=== PATIENT | female | born 1950 | race Caucasian/White ===

== ENCOUNTER 2016-03-25 10:55 | Inpatient (IN) | payer MEDICARE, MEDICAID ==
[2016-03-25 11:07] LABS: ABG Draw Site Right Radial; ALLEN'S TEST PASS; BEb 24.6 (+/- 2); TCO2 61.9 MMOL/L (23-27)
--- NOTE | 2016-03-25 11:09 | EDPRACDOC ---
- General Information Information Source: Patient, [employer] Vertical Mode Of Arrival: Ambulance - History of Present Illness Onset: Unknown HPI: Patient states she has had problems breathing for "a long time", her home RN noted today she seemed much weaker and having increased trouble breathing, states too weak to get out of bed to use her Neb or inhaler. Patient reports cough/congestion, unsure of sputum production, fever, chills. No nausea/vomiting /CP. Patient unable to speak in full sentences. Shortness of Breath: Severe Relevant History: Reports: COPD, Heart Failure (CHF) Cough: Reports: Productive Associated Signs and symptoms: Reports: Cough <Ana Palumbo - Last Filed: 03/25/16 11:19> <Mami Mcconnell - Last Filed: 03/25/16 12:04> - General Information Chief Complaint: Dyspnea/Resp distress Stated Complaint: RESP. PROBLEMS Time Seen by Provider: 03/25/16 10:58 Home Medications: Home Medications Alprazolam [Xanax] 0.5 mg PO TID PRN 03/26/12 Aspirin [Aspirin, Chewable] 81 mg PO DAILY@1200 03/26/12 Esomeprazole Mag Trihydrate [Nexium] 40 mg PO QAM 03/26/12 Rosuvastatin Calcium [Crestor] 5 mg PO 03/26/12 Calcium Carb/Vit D3/Minerals [Caltrate w/ Vit D Tab (600mg/800IU)] 1 tab PO BID 12/12/12 CloNIDine (Antihypertensive) [Catapres] 0.2 mg PO BID 12/12/12 Ascorbic Acid [Vitamin C] 500 mg PO DAILY@1200 08/29/13 Levothyroxine [Synthroid, Levoxyl] 88 mcg PO QAM 08/29/13 Acetaminophen/Dp-Hydram HCl [Tylenol Pm Ex-Strength Caplet 500mg/25mg] 2 tabs PO 11/27/13 Budesonide [Pulmicort] 0.5 mg NEB BID 11/27/13 Citalopram (anti-depressant) [Celexa] 20 mg PO DAILY@1200 11/27/13 Furosemide [Lasix] 20 mg PO BID 11/27/13 Potassium Chloride [Micro-K] 8 meq PO QAM 11/27/13 Albuterol Sulfate [Proair Hfa] 1 - 2 puff INH Q4-6H PRN 05/06/14 Estradiol [Estrace] 0.5 mg PO DAILY 05/06/14 Nebulizer [Erapid Nebulizer] 1 item NEB DAILY 05/06/14 [place]-3S/Dha/Epa/Fish Oil [Fish Oil 1,200 mg Softgel] 1 cap PO BID 05/06/14 Cholecalciferol [Vitamin D] 1,000 units PO DAILY 03/25/16 Furosemide [Lasix] 40 mg PO DAILY 03/25/16 Potassium Chloride [Klor-Con M10] 10 meq PO DAILY 03/25/16 Prednisone [Sterapred Ds] 10 mg PO DIR 03/25/16 Umeclidinium Brm/Vilanterol Tr [Anoro Ellipta 62.5-25 Mcg INH] 1 puff INH DAILY 03/25/16 Allergies/Adverse Reactions: Allergies Allergy/AdvReac Type Severity Reaction Status Date / Time No Known Allergies Allergy Verified 11/27/13 15:28 - Treatment Prior to ED Arrival Reported Medications/Treatment [employer] Meds/Treatments Given Neb Treatment(Albuterol) EMS Treatment ALS IV Yes <Mami Mcconnell - Last Filed: 03/25/16 12:04> ED Past Medical History - History Reviewed Yes Nurses notes reviewed and agree except as marked - Patient Medical History Cardiac History: Reports: Hypertension, Congestive Heart Failure, Heart Attack ( ? mild 13 yrs ago "due to my breathing") Respiratory History: Reports: Asthma, COPD, Emphysema GI/ History: Reports: Gastroesophageal Reflux Psychological History: Reports: Depression, Anxiety Systemic History: Reports: Cancer, Hypothyroidism - Family Medical History Reports: Hypertension (mother and father), Cancer (brother colon and liver), Stroke (2 sisters), Cardiac Disorders (mother and father) - Social Medical History ETOH: None Substance Abuse: None Lives In: Home <Ana Palumbo - Last Filed: 03/25/16 11:19> EDM Review of Systems - Review of Systems ROS Negative Except as Marked: Yes All systems reviewed and were negative except as marked Constitutional: Fever, Fatigue, Weakness Eyes: No Symptoms Reported Ears: No Symptoms Reported Throat: No Symptoms Reported Nose: No Symptoms Reported Mouth: No Symptoms Reported Respiratory: Cough, Shortness of Breath, Sputum, Dyspnea Cardiovascular: No Symptoms Reported Gastrointestinal: No Symptoms Reported <Ana Palumbo - Last Filed: 03/25/16 11:19> - Physical Exam Constitutional: Alert Oriented to: Time, Person, Place Last recorded Vital Signs: Oxygen Pulse Oxygen Saturation O2 Device Oxygen Flow Rate Fraction of Inspired Oxygen ( FIO2) - HEENT Head: Normal ( normocephalic) Eye Exam: Normal (PERRL, EOMI, Sclera white) Nose: No Symptoms Reported (septum midline) Neck: Normal (FROM, trachea at midline) - Respiratory/Cardiovascular Respiratory: Diminished Cardiovascular: Normal (RRR without murmur, gallop or rub) - GI Auscultation: Normal (NABS) Tenderness: Non tender - Musculoskeletal Back: Normal (Non-Tender) Extremities: Normal (Normal tone, Pulses 2+ No cyanosis or edema, FROM) - Integumentary Skin: Normal, Warm, Dry Lymphatics: Normal (no adenopathy) - Neurologic Memory Impaired: Normal Motor Function: Normal (Normal tone, Pulses 2+ No cyanosis or edema, FROM) Mood Description: Normal <Sai Palumboy Tasha - Last Filed: 03/25/16 11:19> - Physical Exam Last recorded Vital Signs: Last Vital Signs Temp 99.2 F 03/25/16 10:58 Pulse 115 03/25/16 12:00 Resp 26 H 03/25/16 12:00 BP 127/60 03/25/16 12:00 Pulse Ox 91 03/25/16 12:00 Oxygen Pulse Oxygen Saturation 91 O2 Device BiPAP Oxygen Flow Rate 15 Fraction of Inspired Oxygen ( 40 FIO2) <Mami Mcconnell - Last Filed: 03/25/16 12:04> ED SOB MDM - EKG EKG #1 EKG Time: 11:02 -: Yes EKG interpreted by me Rate: bpm: 108 [place]: Normal Rhythm: ST Block: None ST: Nonsp <Sai Palumboy Tasha - Last Filed: 03/25/16 11:19> - Results Result Diagrams: 03/25/16 11:12 03/25/16 11:12 Results: WBC 29.6 xk/uL (3.8-10.8) H 03/25/16 11:12 RBC 4.02 xM/uL (4.20-5.40) L 03/25/16 11:12 Hgb 11.3 g/dL (12.0-16.0) L 03/25/16 11:12 Hct 37.0 % (36-47) 03/25/16 11:12 MCV 92 fL (81-99) 03/25/16 11:12 MCH 28.1 pg (27-32) 03/25/16 11:12 MCHC 30.6 g/dl (33-36) L 03/25/16 11:12 RDW 14.3 % (11.5-14.5) 03/25/16 11:12 Plt Count 194 xk/uL (130-400) 03/25/16 11:12 MPV 9.5 fL (7.4-10.4) 03/25/16 11:12 Neut % (Auto) Cancelled 03/25/16 11:12 Lymph % (Auto) Cancelled 03/25/16 11:12 [place] % (Auto) Cancelled 03/25/16 11:12 Eos % (Auto) Cancelled 03/25/16 11:12 Baso % (Auto) Cancelled 03/25/16 11:12 Absolute Neuts (auto) Cancelled 03/25/16 11:12 Absolute Lymphs (auto) Cancelled 03/25/16 11:12 Seg Neuts % (Manual) 92 % (45-76) H 03/25/16 11:12 Band Neutrophils % 3 % (0-5) 03/25/16 11:12 Lymphocytes % (Manual) 4 % (17-44) L 03/25/16 11:12 Monocytes % (Manual) 1 % (0-10) 03/25/16 11:12 Absolute Neutrophils 28.12 xk/uL (1.7-8.2) H 03/25/16 11:12 Absolute Lymphocytes 1.18 xk/uL (0.65-4.75) 03/25/16 11:12 Platelet Estimate Norm (NORMAL) 03/25/16 11:12 RBC Morphology Norm 03/25/16 11:12 PT 10.0 SEC (9.2-11.2) 03/25/16 11:12 INR 1.0 03/25/16 11:12 APTT 23.6 SEC (22-35) 03/25/16 11:12 Puncture Site Right radial 03/25/16 11:00 pH 7.290 pH UNITS (7.35-7.45) L 03/25/16 11:00 pCO2 121.0 mmHg (35-45) H* 03/25/16 11:00 pO2 199.0 mmHg (80-100) H 03/25/16 11:00 HCO3 58.2 MMOL/L (22-26) H 03/25/16 11:00 Total CO2 61.9 MMOL/L (23-27) H 03/25/16 11:00 Base Excess 24.6 (+/- 2) H 03/25/16 11:00 FiO2 % 8 lpm 03/25/16 11:00 Specimen Drawn By Roude 03/25/16 11:00 Sodium 140 mEq/L (137-146) 03/25/16 11:12 Potassium 3.7 mEq/L (3.5-5.1) 03/25/16 11:12 Chloride 87 mEq/L (98-107) L 03/25/16 11:12 Carbon Dioxide 50 mMOL/L (22-33) H 03/25/16 11:12 Anion Gap 7 mEq/L (8-16) L 03/25/16 11:12 BUN 18 MG/DL (7-17) H 03/25/16 11:12 Creatinine 0.60 MG/DL (0.52-1.04) 03/25/16 11:12 Estimated GFR (MDRD) > 60 mL/min (>=60) 03/25/16 11:12 Glucose 127 MG/DL (70-99) H 03/25/16 11:12 Calculated Osmolality 273 MOs/Kg (270-290) 03/25/16 11:12 Lactic Acid 0.8 mEq/L (0.7-2.1) 03/25/16 11:12 Calcium 8.5 MG/DL (8.4-10.2) 03/25/16 11:12 Corrected Calcium 8.7 MG/DL (8.4-10.2) 03/25/16 11:12 Total Bilirubin 0.5 MG/DL (0.2-1.3) 03/25/16 11:12 AST 29 IU/L (14-36) 03/25/16 11:12 ALT 32 IU/L (9-52) 03/25/16 11:12 Alkaline Phosphatase 80 IU/L (55-165) 03/25/16 11:12 Creatine Kinase 25 IU/L (30-134) L 03/25/16 11:12 Total Protein 7.1 G/DL (6.3-8.2) 03/25/16 11:12 Albumin 3.8 G/DL (3.5-5.0) 03/25/16 11:12 Lab Results 03/25/16 03/25/16 03/25/16 11:12 11:12 11:12 WBC 29.6 H RBC 4.02 L Hgb 11.3 L Hct 37.0 MCV 92 MCH 28.1 MCHC 30.6 L RDW 14.3 Plt Count 194 MPV 9.5 Neut % (Auto) Cancelled Lymph % (Auto) Cancelled [place] % (Auto) Cancelled Eos % (Auto) Cancelled Baso % (Auto) Cancelled Absolute Neuts (auto) Cancelled Absolute Lymphs (auto) Cancelled Seg Neuts % (Manual) 92 H Band Neutrophils % 3 Lymphocytes % (Manual) 4 L Monocytes % (Manual) 1 Absolute Neutrophils 28.12 H Absolute Lymphocytes 1.18 Platelet Estimate Norm RBC Morphology Norm PT 10.0 INR 1.0 APTT 23.6 Puncture Site pH pCO2 pO2 HCO3 Total CO2 Base Excess FiO2 % Specimen Drawn By Sodium Potassium Chloride Carbon Dioxide Anion Gap BUN Creatinine Estimated GFR (MDRD) Glucose Calculated Osmolality Lactic Acid 0.8 Calcium Corrected Calcium Total Bilirubin AST ALT Alkaline Phosphatase Creatine Kinase Total Protein Albumin 03/25/16 03/25/16 11:12 11:00 WBC RBC Hgb Hct MCV MCH MCHC RDW Plt Count MPV Neut % (Auto) Lymph % (Auto) [place] % (Auto) Eos % (Auto) Baso % (Auto) Absolute Neuts (auto) Absolute Lymphs (auto) Seg Neuts % (Manual) Band Neutrophils % Lymphocytes % (Manual) Monocytes % (Manual) Absolute Neutrophils Absolute Lymphocytes Platelet Estimate RBC Morphology PT INR APTT Puncture Site Right radial pH 7.290 L pCO2 121.0 H* pO2 199.0 H HCO3 58.2 H Total CO2 61.9 H Base Excess 24.6 H FiO2 % 8 lpm Specimen Drawn By Roude Sodium 140 Potassium 3.7 Chloride 87 L Carbon Dioxide 50 H Anion Gap 7 L BUN 18 H Creatinine 0.60 Estimated GFR (MDRD) > 60 Glucose 127 H Calculated Osmolality 273 Lactic Acid Calcium 8.5 Corrected Calcium 8.7 Total Bilirubin 0.5 AST 29 ALT 32 Alkaline Phosphatase 80 Creatine Kinase 25 L Total Protein 7.1 Albumin 3.8 <Mami Mcconnell - Last Filed: 03/25/16 12:04> ED Critical Care Note - Critical Care Note Total Time (mins): 30 <Mami Mcconnell - Last Filed: 03/25/16 12:04> <Ana Palumbo - Last Filed: 03/25/16 11:19> - Departure Yes I personally saw and evaluated the patient. Disposition: Admit IP To This Hospital Education/Counseling Given To: Patient Education/Counseling Given Regarding: Diagnosis, Treatment Decision to Admit Time: 12:03 Decision to admit date: 03/25/16 Decision to admit: from ED - Physician Consulted Hospitalist Provider Called: Ronda Sr <Mami Mcconnell - Last Filed: 03/25/16 12:04> - Departure Condition: Serious Final Diagnosis: Acute exacerbation of chronic obstructive airways disease, Acute hypercapnic respiratory failure, Acute bronchitis Referrals: None,No Provider [NonStaff] - One Week
[2016-03-25] MEDS ORDERED: LORAZEPAM 2 MG/ML VIAL IV ONE (11:20)
[2016-03-25] MEDS ORDERED: ALBUTEROL 0.083% 3 ML NEB NEB ONE (11:23)
[2016-03-25 11:35] LABS: MPV 9.5 fL (7.4-10.4)
--- NOTE | 2016-03-25 11:37 | DIRPT ---
CLINICAL DATA: Shortness of Breath EXAM: PORTABLE CHEST 1 VIEW COMPARISON: 05/06/2014 FINDINGS: Cardiomediastinal silhouette is stable. Bilateral mild emphysematous changes again noted. Stable right upper lobe pleural parenchymal scarring. Right subclavian Port-A-Cath is unchanged in position. No definite superimposed infiltrate or pulmonary edema. IMPRESSION: No active disease. Stable emphysematous changes and right upper lobe pleural parenchymal scarring. Electronically Signed By: Jude Melchor M.D. On: 03/25/2016 11:34
[2016-03-25] MEDS ORDERED: AZITHROMYCIN 500 MG in D5W 250 ML IV ONE (11:40)
[2016-03-25] MEDS ORDERED: CEFTRIAXONE 1 GM in D5W 100 ML IV ONE (11:40)
[2016-03-25 11:46] LABS: PARTIAL THROMB. TIME 23.6 SEC (22-35)
[2016-03-25 11:48] LABS: BLOOD UREA NITROGEN 18 MG/DL (7-17); CALC CORRECTED 8.7 MG/DL (8.4-10.2); CALCIUM 8.5 MG/DL (8.4-10.2); CALCULATED OSMOLALITY 273 MOs/Kg (270-290); CHLORIDE 87 mEq/L (98-107); CPK TOTAL WITH POSSIBLE MB 25 IU/L (30-134); GLUCOSE 127 MG/DL (70-99); SODIUM LEVEL 140 mEq/L (137-146); TOTAL PROTEIN 7.1 G/DL (6.3-8.2)
[2016-03-25 11:53] LABS: SEG NEUTROPHIL 92 % (45-76)
[2016-03-25 12:25] LABS: RBC/URINE 0-2 (0-5); WBC/URINE 0-2 (0-5)
[2016-03-25 12:26] LABS: LEUKOCYTES/URINE NEG (NEGATIVE); NITRITE/URINE NEG (NEGATIVE); URINE OCCULT BLOOD NEG (NEG/TRACE)
[2016-03-25] MEDS ORDERED: ONDANSETRON HCL 4 MG/2 ML VIAL IV PRN (13:02)
[2016-03-25] MEDS ORDERED: ALBUTEROL 0.083% 3 ML NEB NEB PRN (13:02)
[2016-03-25] MEDS ORDERED: LORAZEPAM 2 MG/ML VIAL IV PRN (13:02)
--- NOTE | 2016-03-25 13:09 | HISTPHYS ---
- Chief Complaint COPD exacerbation - History of Present Illness This is a 65-year-old female with history of COPD chronically on 3 L nasal cannula oxygen was being admitted today due to 2 days of worsening shortness of breath, and increasing cough. Most of the history is taken from the patient's daughter who was at the bedside, and is her daily caregiver, since the patient is currently on BiPAP and also very hard of hearing. The patient and her daughter together tell me that she has been in her usual state of health over the last several months, though she has had some intermittent rectal bleeding. Other than that, she has been in her usual state of health until 2 days ago, when she started to feel like she was coming down with some sort of a cold and having some worsening shortness of breath. Shortness of breath was exacerbated by exertion. She denies any associated fevers or chills at home, chest pain, abdominal pain nausea or vomiting. No therapies tried prior to arrival at home. Id the emergency department, ABG demonstrated a pCO2 of 120. The patient was placed on BiPAP and is currently breathing comfortably. - Medical History Cardiac History: Reports: Hypertension, Congestive Heart Failure, Heart Attack ( ? mild 13 yrs ago "due to my breathing") Respiratory History: Reports: Asthma, COPD, Emphysema GI/ History: Reports: Gastroesophageal Reflux Systemic History: Reports: Cancer, Hypothyroidism Psychological History: Reports: Depression, Anxiety - Medictions/Allergies Allergies No Known Allergies Allergy (Verified 11/27/13 15:28) Home Medications Alprazolam [Xanax] 0.5 mg PO TID PRN 03/26/12 Aspirin [Aspirin, Chewable] 81 mg PO DAILY@1200 03/26/12 Esomeprazole Mag Trihydrate [Nexium] 40 mg PO QAM 03/26/12 Rosuvastatin Calcium [Crestor] 5 mg PO HS 03/26/12 Calcium Carb/Vit D3/Minerals [Caltrate w/ Vit D Tab (600mg/800IU)] 1 tab PO BID 12/12/12 CloNIDine (Antihypertensive) [Catapres] 0.2 mg PO BID 12/12/12 Ascorbic Acid [Vitamin C] 500 mg PO DAILY@1200 08/29/13 Levothyroxine [Synthroid, Levoxyl] 88 mcg PO QAM 08/29/13 Acetaminophen/Dp-Hydram HCl [Tylenol Pm Ex-Strength Caplet 500mg/25mg] 2 tabs PO HS 11/27/13 Budesonide [Pulmicort] 0.5 mg NEB BID 11/27/13 Citalopram (anti-depressant) [Celexa] 20 mg PO DAILY@1200 11/27/13 Furosemide [Lasix] 20 mg PO BID 11/27/13 Potassium Chloride [Micro-K] 8 meq PO QAM 11/27/13 Albuterol Sulfate [Proair Hfa] 1 - 2 puff INH Q4-6H PRN 05/06/14 Estradiol [Estrace] 0.5 mg PO DAILY 05/06/14 Nebulizer [Erapid Nebulizer] 1 item NEB DAILY 05/06/14 [place]-3S/Dha/Epa/Fish Oil [Fish Oil 1,200 mg Softgel] 1 cap PO BID 05/06/14 Cholecalciferol [Vitamin D] 1,000 units PO DAILY 03/25/16 Furosemide [Lasix] 40 mg PO DAILY 03/25/16 Potassium Chloride [Klor-Con M10] 10 meq PO DAILY 03/25/16 Prednisone [Sterapred Ds] 10 mg PO DIR 03/25/16 Umeclidinium Brm/Vilanterol Tr [Anoro Ellipta 62.5-25 Mcg INH] 1 puff INH DAILY 03/25/16 - Family History Reports: Hypertension (mother and father), Cancer (brother colon and liver), Stroke (2 sisters), Cardiac Disorders (mother and father) - Social History Travel Outside of [place] in the Last 3 Months?: No Smoking Status: Former smoker - Review of Systems Yes All systems reviewed and were negative except as marked (And as mentioned in the history of present illness above.) - Physical Exam Vital Signs: Initial Vitals Temperature 99.2 F 03/25/16 10:58 Pulse Rate 107 03/25/16 10:58 Respiratory Rate 24 03/25/16 10:58 Blood Pressure 143/65 03/25/16 10:58 Pulse Oxygen Saturation 96 03/25/16 10:58 Constitutional: Distress Oriented to: Time, Person, Place Exam: Hard of hearing, but surprisingly breathing quite comfortably on the BiPAP. She is not confused and is a decently good historian. - HEENT Head: Normal (normocephalic,atraumatic, trachea midline) Eye: Normal (EOMI, Sclera white) Oropharynx: Normal (moist) Nose: No Symptoms Reported (without discharge or bleeding) Breathing on BiPAP. Respiratory: Diminished, Rales, Rhonchi, Stridor, Tachypnea, Wheezes Cardiovascular: Normal (RRR, no murmurs, rubs or gallops) - GI Palpation: Normal (soft, non distended and nontender) - Musculoskeletal Extremities: Normal (normal tone, no cyanosis or edema) - Integumentary Skin: Normal (no rashes or lesions) - Focused CV Perfusion Exam Vital Signs: Last Vital Signs Temp 99.2 F 03/25/16 10:58 Pulse 102 03/25/16 13:02 Resp 22 03/25/16 13:02 BP 130/60 03/25/16 13:02 Pulse Ox 90 L 03/25/16 13:02 - Lab Results Laboratory Tests 03/25/16 03/25/16 03/25/16 11:00 11:12 11:12 WBC 29.6 H Hgb 11.3 L INR pH 7.290 L pCO2 121.0 H* pO2 199.0 H Potassium 3.7 BUN 18 H Creatinine 0.60 Total Bilirubin 0.5 AST 29 ALT 32 03/25/16 11:12 WBC Hgb INR 1.0 pH pCO2 pO2 Potassium BUN Creatinine Total Bilirubin AST ALT - Diagnostic Findings CXR: No active disease. Stable emphysematous changes and right upper lobe pleural parenchymal scarring. - Assessment (1) Acute hypercapnic respiratory failure J96.02 - ACUTE RESPIRATORY FAILURE WITH HYPERCAPNIA Acute Reason for admission to the hospital. Remarkably, even though the patient's CO2 is 120 ( higher than it ever has been in this hospital before), the patient's mentation is quite normal and she is recovering nicely on BiPAP. Continue BiPAP support, recheck ABG now. Treat COPD exacerbation which is the underlying cause, as below. (2) Acute exacerbation of chronic obstructive airways disease J44.1 - CHRONIC OBSTRUCTIVE PULMONARY DISEASE W (ACUTE) EXACERBATION Acute Severe COPD exacerbation with impressive hypercapnia. Patient will be continued on BiPAP therapy, respiratory therapy has been consulted. She will receive empiric IV steroids and IV antibiotics with IV Rocephin and ceftriaxone. She also get mucolytic send inhaled bronchodilators. Aggressive pulmonary toilet. COPD education will be provided. We will check an ABG now, as well as a repeat in the morning with two view chest x-ray. (3) Acute bronchitis J20.9 - ACUTE BRONCHITIS, UNSPECIFIED Acute With fever at the time of presentation. No consolidation on chest x-ray. Will treat as mentioned above with empiric IV azithromycin and Rocephin. (4) Hypertension I10 - ESSENTIAL (PRIMARY) HYPERTENSION Acute Qualifiers: Hypertension type: H Continue home clonidine. 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 She takes immunoglobulin Q , and is due for this medication. (6) Rectal bleeding K62.5 - HEMORRHAGE OF ANUS AND RECTUM Acute Patient's daughter tells me that she has had intermittent bright red rectal bleeding over the last several months. No rectal pain, no dark or tarry stools. This is likely hemorrhoidal bleeding, will keep a close eye on the patient's hemoglobin each day. Would recommend outpatient gastroenterology follow-up once the patient is ready for discharge from the hospital, as long as she is hemodynamically stable, if rectal bleeding continues. (7) DNR (do not resuscitate) discussion Z71.89 - OTHER SPECIFIED COUNSELING Acute According to the patient's daughter, she has made it quite clear that she would not want to be intubated or resuscitated in case of worsening respiratory distress or hemodynamic compromise. As such, the patient will be made a DNR. - Plan In summary this patient is acutely and critically ill. The patient requires treatment of vital organ failure and measures to prevent further life- threatening deterioration of the above conditions. I personally reviewed and ordered lab testing, as well as imaging. I reviewed old medical records from previous hospitalizations as available, and spent the time mentioned below in critical care of this patient including counseling and coordination of care. Total Time: 92
[2016-03-25 13:15] LABS: ALLEN'S TEST PASS; BEb 23.6 (+/- 2); TCO2 58.8 MMOL/L (23-27)
[2016-03-25 13:17] LABS: ABG Draw Site Right Radial; SPONT. RR 25 BR/MIN; SPONT. VT 300 ML
[2016-03-25 13:18] LABS: MODE Bipap16/8 RATE
[2016-03-25] MEDS: Albuterol/Ipratropium Neb 3 ML NEB NEB SCH ×4 (13:20→21:12)
[2016-03-25] MEDS: METHYLPREDNISOLONE 125 MG/2 ML VIAL IV SCH ×2 (15:12→20:31)
[2016-03-25] MEDS ORDERED: SODIUM CHLORIDE 0.9% 5 ML FLUSH FLUSH PRN (15:58)
[2016-03-25] MEDS ORDERED: NS 1,000 ML IV SCH (16:16)
[2016-03-25] MEDS: NS 1,000 ML IV SCH (17:11)
[2016-03-25] MEDS ORDERED: SODIUM CHLORIDE 0.9% 5 ML FLUSH FLUSH SCH (18:00)
[2016-03-25] MEDS: ENOXAPARIN 40 MG/0.4 ML PFS SQ SCH (18:40)
[2016-03-25] MEDS: PANTOPRAZOLE 40 MG VIAL IV SCH (18:40)
[2016-03-25] MEDS ORDERED: Vaccine Screening Complete SCH (19:00)
[2016-03-25] MEDS: CloNIDine 0.2 MG TAB PO SCH (20:30)
[2016-03-26] MEDS: METHYLPREDNISOLONE 125 MG/2 ML VIAL IV SCH ×4 (01:33→21:29)
[2016-03-26] MEDS: Albuterol/Ipratropium Neb 3 ML NEB NEB SCH ×6 (02:52→19:21)
[2016-03-26 04:39] LABS: ALLEN'S TEST PASS; TCO2 58.5 MMOL/L (23-27)
[2016-03-26 04:42] LABS: ABG Draw Site Left Radial; ABG Draw Tech BKL
[2016-03-26 04:43] LABS: BI-PAP 16/8 RATE 10 cm H2O
[2016-03-26 04:50] VITALS: BMI 28.8
[2016-03-26 05:52] LABS: BLOOD UREA NITROGEN 24 MG/DL (7-17); CALCIUM 8.4 MG/DL (8.4-10.2); CALCULATED OSMOLALITY 271 MOs/Kg (270-290); CHLORIDE 86 mEq/L (98-107); GLUCOSE 149 MG/DL (70-99); SODIUM LEVEL 137 mEq/L (137-146)
[2016-03-26] MEDS ORDERED: PANTOPRAZOLE 40 MG TAB PO SCH (06:00)
[2016-03-26] MEDS: FUROSEMIDE 40 MG TAB PO SCH (08:13)
[2016-03-26] MEDS: LEVOTHYROXINE 88 MCG (0.088 MG) TAB PO SCH (08:13)
[2016-03-26] MEDS: CloNIDine 0.2 MG TAB PO SCH ×2 (08:13→21:29)
[2016-03-26] MEDS: ESTRADIOL 1 MG TAB PO SCH (08:13)
[2016-03-26] MEDS: ASPIRIN (CHEWABLE) 81 MG TAB PO SCH (08:13)
--- NOTE | 2016-03-26 08:17 | GENMEDPROG ---
Chief Complaint: Severe COPD exacerbation Subjective Note: No acute events overnight, still on BiPAP. Breathing much more comfortably. Notes Reviewed: Yes Events from last night noted and discussed with Clinical Staff Current Medication List: Reviewed Currently: Reports: Cough, Wheezing, [place], SOB, Sputum DVT Prophylaxis: Yes - Physical Examination Vital Signs and I&O: Last Vital Signs Temp 97.7 F 03/26/16 07:45 Pulse 78 03/26/16 07:45 Resp 22 03/26/16 07:45 BP 129/58 L 03/26/16 07:45 Pulse Ox 96 03/26/16 07:45 Oxygen Pulse Oxygen Saturation 96 O2 Device BiPAP Oxygen Flow Rate Fraction of Inspired Oxygen ( 40 FIO2) Intake & Output 03/24/16 03/25/16 03/26/16 03/27/16 06:59 06:59 06:59 06:59 Intake Total 150 Output Total 675 Balance -525 Patient's weight 81.012 kg General: Alert, Oriented x3, Mild distress HEENT: EOMI (Sclera white) Neck: Normal Trachea alignment, Normal inspection Respiratory: Diminished, Rales, Rhonchi, Wheezes Cardiovascular: Regular rate, No Gallops,Rubs/Murmurs GI: Normal bowel sounds, Soft, Non tender (non distended) Extremities/Musculoskeletal: Other (Normal Tone). negative: Edema, Cyanosis Skin: No rashes, No significant lesion Lab/DI/Studies Reviewed: Laboratory Tests 03/25/16 03/25/16 03/25/16 11:00 11:12 11:12 WBC 29.6 H Hgb pH pCO2 121.0 H* pO2 Potassium BUN Creatinine Troponin I 0.06 03/25/16 03/25/16 03/25/16 13:05 14:15 17:25 WBC Hgb pH pCO2 103.0 H* pO2 Potassium BUN Creatinine Troponin I 0.08 0.08 03/26/16 03/26/16 03/26/16 04:35 04:50 04:50 WBC 29.6 H Hgb 10.8 L pH 7.400 pCO2 90.0 H* pO2 68.0 L Potassium 4.0 BUN 24 H Creatinine 0.60 Troponin I - Assessment (1) Acute hypercapnic respiratory failure Acute J96.02 - ACUTE RESPIRATORY FAILURE WITH HYPERCAPNIA Comment/Plan: Reason for admission to the hospital. Patient was always mentating well even when her CO2 was 120. She is feeling a little better today, still breathing on the BiPAP. Will continue BiPAP support, recheck an ABG on a daily basis until much improved. Treat COPD exacerbation as below. We can allow her to alternate on and off the BiPAP today every 3 hours. Discussed with nursing at the bedside. (2) Acute exacerbation of chronic obstructive airways disease Acute J44.1 - CHRONIC OBSTRUCTIVE PULMONARY DISEASE W (ACUTE) EXACERBATION Comment/Plan: Severe COPD exacerbation with impressive hypercapnia. Patient will be continued on BiPAP therapy, respiratory therapy has been consulted. She is being treated with empiric IV steroids and IV antibiotics with IV Rocephin and ceftriaxone. She is also getting mucolytic and inhaled bronchodilators. Aggressive pulmonary toilet. COPD education will be provided. Continue to check ABGs daily. (3) Acute bronchitis Acute J20.9 - ACUTE BRONCHITIS, UNSPECIFIED Comment/Plan: With fever at the time of presentation. No consolidation on chest x-ray. Will treat as mentioned above with empiric IV azithromycin and Rocephin. (4) Hypertension Acute I10 - ESSENTIAL (PRIMARY) HYPERTENSION Qualifiers: Hypertension type: H Comment/Plan: Continue home clonidine. 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 She takes immunoglobulin Q , and is due for this medication. (6) Rectal bleeding Acute K62.5 - HEMORRHAGE OF ANUS AND RECTUM Comment/Plan: Patient's daughter tells me that she has had intermittent bright red rectal bleeding over the last several months. No rectal pain, no dark or tarry stools. This is likely hemorrhoidal bleeding, will keep a close eye on the patient's hemoglobin each day. Would recommend outpatient gastroenterology follow-up once the patient is ready for discharge from the hospital, as long as she is hemodynamically stable, if rectal bleeding continues. (7) DNR (do not resuscitate) discussion Acute Z71.89 - OTHER SPECIFIED COUNSELING Comment/Plan: According to the patient's daughter, she has made it quite clear that she would not want to be intubated or resuscitated in case of worsening respiratory distress or hemodynamic compromise. As such, the patient will be made a DNR.
[2016-03-26] MEDS: CEFTRIAXONE 1 GM in D5W 100 ML IV SCH (11:31)
[2016-03-26] MEDS: ACETAMINOPHEN 325 MG/TAB TABLET PO PRN ×2 (12:18→21:38)
[2016-03-26] MEDS: AZITHROMYCIN 500 MG in D5W 250 ML IV SCH (12:19)
[2016-03-26] MEDS: PANTOPRAZOLE 40 MG VIAL IV SCH (17:28)
[2016-03-26] MEDS: ENOXAPARIN 40 MG/0.4 ML PFS SQ SCH (17:28)
[2016-03-26] MEDS: NS 1,000 ML IV SCH (17:45)
[2016-03-26] MEDS: ROSUVASTATIN 10 MG TAB PO SCH (21:29)
[2016-03-26] MEDS: ALPRAZOLAM 0.5 MG TAB PO PRN (21:38)
[2016-03-27] MEDS: Albuterol/Ipratropium Neb 3 ML NEB NEB SCH ×5 (01:18→23:44)
[2016-03-27] MEDS: METHYLPREDNISOLONE 125 MG/2 ML VIAL IV SCH ×4 (01:41→21:20)
[2016-03-27] MEDS: NS 1,000 ML IV SCH ×2 (01:45→16:43)
[2016-03-27 03:13] LABS: MPV 10.5 fL (7.4-10.4)
[2016-03-27 03:24] LABS: BLOOD UREA NITROGEN 23 MG/DL (7-17); CALCIUM 8.5 MG/DL (8.4-10.2); CALCULATED OSMOLALITY 275 MOs/Kg (270-290); CHLORIDE 87 mEq/L (98-107); GLUCOSE 127 MG/DL (70-99); SODIUM LEVEL 140 mEq/L (137-146)
[2016-03-27 04:41] LABS: ALLEN'S TEST PASS; TCO2 57.2 MMOL/L (23-27)
[2016-03-27 04:45] LABS: ABG Draw Site Left Radial
[2016-03-27 04:46] LABS: BI-PAP 16/8 cm H2O
[2016-03-27] MEDS: ASPIRIN (CHEWABLE) 81 MG TAB PO SCH (08:11)
[2016-03-27] MEDS: ESTRADIOL 1 MG TAB PO SCH (08:11)
[2016-03-27] MEDS: CloNIDine 0.2 MG TAB PO SCH ×2 (08:11→21:42)
[2016-03-27] MEDS: FUROSEMIDE 40 MG TAB PO SCH (08:11)
[2016-03-27] MEDS: LEVOTHYROXINE 88 MCG (0.088 MG) TAB PO SCH (08:11)
--- NOTE | 2016-03-27 09:39 | GENMEDPROG ---
Chief Complaint: Severe COPD exacerbate Subjective Note: She is resting comfortably this morning. is the bedside. Were BiPAP for few hours yesterday. Has been wearing overnight here in the hospital. Currently: Reports: Cough, Wheezing, BURTON, SOB, Sputum DVT Prophylaxis: Yes - Physical Examination Vital Signs and I&O: Last Vital Signs Temp 97.6 F 03/27/16 07:25 Pulse 67 03/27/16 07:25 Resp 18 03/27/16 07:25 BP 118/57 L 03/27/16 07:25 Pulse Ox 98 03/27/16 08:00 Oxygen Pulse Oxygen Saturation 98 O2 Device Nasal Cannula Oxygen Flow Rate 2 Fraction of Inspired Oxygen ( 30 FIO2) Intake & Output 03/25/16 03/26/16 03/27/16 03/28/16 06:59 06:59 06:59 06:59 Intake Total 150 760 Output Total 675 1720 Balance -525 -960 Patient's weight 81.012 kg General: Alert, Oriented x3, Mild distress HEENT: EOMI (Sclera white) Neck: Normal Trachea alignment, Normal inspection Respiratory: Diminished, Rales, Rhonchi, Wheezes Cardiovascular: Regular rate, No Gallops,Rubs/Murmurs GI: Normal bowel sounds, Soft, Non tender (non distended) Extremities/Musculoskeletal: Other (Normal Tone). negative: Edema, Cyanosis Skin: No rashes, No significant lesion Pulmonary exam is better. She is resting comfortably this morning. On nasal cannula oxygen. Lab/DI/Studies Reviewed: Laboratory Tests 03/25/16 03/26/16 03/27/16 13:05 04:35 02:12 WBC Hgb Hct pH pCO2 103.0 H* 90.0 H* pO2 Potassium 3.9 BUN 23 H Creatinine 0.60 03/27/16 03/27/16 02:12 04:36 WBC 24.8 H Hgb 10.1 L Hct 32.8 L pH 7.400 pCO2 88.0 H* pO2 101.0 H Potassium BUN Creatinine - Assessment (1) Acute hypercapnic respiratory failure Acute J96.02 - ACUTE RESPIRATORY FAILURE WITH HYPERCAPNIA Comment/Plan: Reason for admission to the hospital. Patient was always mentating well even when her CO2 was 120. She is feeling a little better today, still breathing on the BiPAP. Will continue BiPAP support, recheck an ABG on a daily basis until much improved. Treat COPD exacerbation as below. We can allow her to alternate on and off the BiPAP today every 3 hours. Discussed with nursing at the bedside. CO2 is still quite high, even for her. Continue 1 more day of this therapy, several hours of BiPAP during the day as well as at night. Recheck of gas in the morning, and if better she can likely discharge home tomorrow. She will need to complete a course of p.o. antibiotics and steroid dose taper. (2) Acute exacerbation of chronic obstructive airways disease Acute J44.1 - CHRONIC OBSTRUCTIVE PULMONARY DISEASE W (ACUTE) EXACERBATION Comment/Plan: Severe COPD exacerbation with impressive hypercapnia. Patient will be continued on BiPAP therapy, respiratory therapy has been consulted. She is being treated with empiric IV steroids and IV antibiotics with IV Rocephin and ceftriaxone. She is also getting mucolytic and inhaled bronchodilators. Aggressive pulmonary toilet. COPD education will be provided. Continue to check ABGs daily. (3) Acute bronchitis Acute J20.9 - ACUTE BRONCHITIS, UNSPECIFIED Comment/Plan: With fever at the time of presentation. No consolidation on chest x-ray. Will treat as mentioned above with empiric IV azithromycin and Rocephin. (4) Hypertension Acute I10 - ESSENTIAL (PRIMARY) HYPERTENSION Qualifiers: Hypertension type: H Comment/Plan: Continue home clonidine. 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 She takes immunoglobulin Q , and is due for this medication. (6) Rectal bleeding Acute K62.5 - HEMORRHAGE OF ANUS AND RECTUM Comment/Plan: Patient's daughter tells me that she has had intermittent bright red rectal bleeding over the last several months. No rectal pain, no dark or tarry stools. This is likely hemorrhoidal bleeding, will keep a close eye on the patient's hemoglobin each day. Would recommend outpatient gastroenterology follow-up once the patient is ready for discharge from the hospital, as long as she is hemodynamically stable, if rectal bleeding continues. (7) DNR (do not resuscitate) discussion Acute Z71.89 - OTHER SPECIFIED COUNSELING Comment/Plan: According to the patient's daughter, she has made it quite clear that she would not want to be intubated or resuscitated in case of worsening respiratory distress or hemodynamic compromise. As such, the patient will be made a DNR.
[2016-03-27] MEDS: CEFTRIAXONE 1 GM in D5W 100 ML IV SCH (11:18)
[2016-03-27] MEDS: AZITHROMYCIN 500 MG in D5W 250 ML IV SCH (11:54)
[2016-03-27] MEDS: ENOXAPARIN 40 MG/0.4 ML PFS SQ SCH (16:44)
[2016-03-27] MEDS: PANTOPRAZOLE 40 MG VIAL IV SCH (16:44)
[2016-03-27] MEDS: PANTOPRAZOLE 40 MG TAB PO SCH (17:25)
[2016-03-27] MEDS: ALPRAZOLAM 0.5 MG TAB PO PRN (21:41)
[2016-03-27] MEDS: ROSUVASTATIN 10 MG TAB PO SCH (21:41)
[2016-03-27] MEDS: ACETAMINOPHEN 325 MG/TAB TABLET PO PRN (21:42)
[2016-03-28] MEDS: METHYLPREDNISOLONE 125 MG/2 ML VIAL IV SCH ×2 (01:50→08:00)
[2016-03-28 03:52] LABS: MPV 10.4 fL (7.4-10.4)
[2016-03-28 03:59] LABS: BLOOD UREA NITROGEN 31 MG/DL (7-17); CALCIUM 8.3 MG/DL (8.4-10.2); CALCULATED OSMOLALITY 279 MOs/Kg (270-290); CHLORIDE 90 mEq/L (98-107); GLUCOSE 152 MG/DL (70-99); SODIUM LEVEL 140 mEq/L (137-146)
[2016-03-28 04:01] LABS: ALLEN'S TEST PASS; TCO2 54.8 MMOL/L (23-27)
[2016-03-28 04:06] LABS: ABG Draw Site Left Radial; BI-PAP 18/9 cm H2O
[2016-03-28] MEDS: PANTOPRAZOLE 40 MG TAB PO SCH (05:40)
[2016-03-28] MEDS: Albuterol/Ipratropium Neb 3 ML NEB NEB SCH (07:40)
[2016-03-28] MEDS: ESTRADIOL 1 MG TAB PO SCH (09:18)
[2016-03-28] MEDS: CloNIDine 0.2 MG TAB PO SCH (09:18)
[2016-03-28] MEDS: FUROSEMIDE 40 MG TAB PO SCH (09:19)
[2016-03-28] MEDS: ASPIRIN (CHEWABLE) 81 MG TAB PO SCH (09:19)
[2016-03-28] MEDS: LEVOTHYROXINE 88 MCG (0.088 MG) TAB PO SCH (09:19)
[2016-03-28] MEDS: ACETAMINOPHEN 325 MG/TAB TABLET PO PRN (09:20)
--- NOTE | 2016-03-28 11:35 | PCM.DCS92 ---
- Final/Secondary Discharge Diagnosis (1) Acute exacerbation of chronic obstructive airways disease Acute J44.1 - CHRONIC OBSTRUCTIVE PULMONARY DISEASE W (ACUTE) EXACERBATION Present on Admission: Yes Comment: Severe COPD exacerbation with impressive hypercapnia. Patient will be continued on BiPAP therapy, respiratory therapy has been consulted. She is being treated with empiric IV steroids and IV antibiotics with IV Rocephin and ceftriaxone. She is also getting mucolytic and inhaled bronchodilators. Aggressive pulmonary toilet. COPD education will be provided. Continue to check ABGs daily. (2) Acute hypercapnic respiratory failure Acute J96.02 - ACUTE RESPIRATORY FAILURE WITH HYPERCAPNIA Present on Admission: Yes Comment: Reason for admission to the hospital. Patient was always mentating well even when her CO2 was 120. She is feeling a little better today, still breathing on the BiPAP. Will continue BiPAP support, recheck an ABG on a daily basis until much improved. Treat COPD exacerbation as below. We can allow her to alternate on and off the BiPAP today every 3 hours. Discussed with nursing at the bedside. CO2 is still quite high, even for her. Continue 1 more day of this therapy, several hours of BiPAP during the day as well as at night. Recheck of gas in the morning, and if better she can likely discharge home tomorrow. She will need to complete a course of p.o. antibiotics and steroid dose taper. (3) Hypertension Acute I10 - ESSENTIAL (PRIMARY) HYPERTENSION Present on Admission: Yes essential hypertension I10 - Essential (primary) hypertension Comment: Continue home clonidine. (4) Leukocytosis Acute D72.829 - ELEVATED WHITE BLOOD CELL COUNT, UNSPECIFIED Present on Admission: Yes bandemia D72.825 - Bandemia Comment: Due to steroids. (5) Hypogammaglobulinemia Chronic Present on Admission: Yes Comment: Continue her dosage of gammaglobulin by Dr. Kim. Discharge Disposition: Discharge w/ Home Health Discharge Condition: Improved Cognitive Discharge Status: Unimpaired Fuctional Discharge Status: Wheelchair Assistance Physician Follow up/Referrals: Jasper Kim MD [Staff Physician] - Hospital to call w/ appt. (3-4 days) Franny Singleton MD [Primary Care Provider] - Hospital to call w/ appt. (2 weeks) Home Medications / New Prescriptions: New Azithromycin [Zithromax Tri-Yobani] 500 mg PO DAILY #3 tablet Cephalexin Monohydrate [Keflex] 500 mg PO Q8H #14 cap Continue Esomeprazole Mag Trihydrate [Nexium] 40 mg PO QAM Alprazolam [Xanax] 0.5 mg PO TID PRN PRN Reason: Anxiety Aspirin [Aspirin, Chewable] 81 mg PO DAILY@1200 Rosuvastatin Calcium [Crestor] 5 mg PO HS CloNIDine (Antihypertensive) [Catapres] 0.2 mg PO BID Calcium Carb/Vit D3/Minerals [Caltrate w/ Vit D Tab (600mg/800IU)] 1 tab PO BID Levothyroxine [Synthroid, Levoxyl] 88 mcg PO QAM Ascorbic Acid [Vitamin C] 500 mg PO DAILY@1200 Acetaminophen/Dp-Hydram HCl [Tylenol Pm Ex-Strength Caplet 500mg/25mg] 2 tabs PO HS Budesonide [Pulmicort] 0.5 mg NEB BID Citalopram (anti-depressant) [Celexa] 20 mg PO DAILY@1200 Furosemide [Lasix] 20 mg PO BID Potassium Chloride [Micro-K] 8 meq PO QAM Nebulizer [Erapid Nebulizer] 1 item NEB DAILY Estradiol [Estrace] 0.5 mg PO DAILY Wister-3S/Dha/Epa/Fish Oil [Fish Oil 1,200 mg Softgel] 1 cap PO BID Albuterol Sulfate [Proair Hfa] 1 - 2 puff INH Q4-6H PRN PRN Reason: Shortness Of Breath Cholecalciferol [Vitamin D3 (cholecalciferol)] 1,000 units PO DAILY Umeclidinium Brm/Vilanterol Tr [Anoro Ellipta 62.5-25 Mcg INH] 1 puff INH DAILY Prednisone [Deltasone, Orasone] 30 mg PO DAILY Gammagard Unk 0 mg IV .SEE COMMENTS No Action L.acidoph & Paracasei,B.lactis [Probiotic] 1 cap PO BID Discharge Home Medication List Alprazolam [Xanax] 0.5 mg PO TID PRN 03/26/12 [History Confirmed 03/28/16 Last Taken 03/27/16 21:40] Aspirin [Aspirin, Chewable] 81 mg PO DAILY@1200 03/26/12 [History Confirmed Last Taken 03/28/16 09:20] Esomeprazole Mag Trihydrate [Nexium] 40 mg PO QAM 03/26/12 [History Confirmed Last Taken 03/25/16] Rosuvastatin Calcium [Crestor] 5 mg PO HS 03/26/12 [History Confirmed 03/28/16 Last Taken 03/27/16 21:40] Calcium Carb/Vit D3/Minerals [Caltrate w/ Vit D Tab (600mg/800IU)] 1 tab PO BID 12/12/12 [History Confirmed 03/25/16 Last Taken 03/25/16] CloNIDine (Antihypertensive) [Catapres] 0.2 mg PO BID 12/12/12 [History Confirmed 03/28/16 Last Taken 03/28/16 09:20] Ascorbic Acid [Vitamin C] 500 mg PO DAILY@1200 08/29/13 [History Confirmed 03/28 Last Taken 03/25/16] Levothyroxine [Synthroid, Levoxyl] 88 mcg PO QAM 08/29/13 [History Confirmed Last Taken 03/28/16 09:20] Acetaminophen/Dp-Hydram HCl [Tylenol Pm Ex-Strength Caplet 500mg/25mg] 2 tabs PO 11/27/13 [History Confirmed 03/28/16 Last Taken 03/28/16 09:20 650 MG] Budesonide [Pulmicort] 0.5 mg NEB BID 11/27/13 [History Confirmed 03/25/16 Last Taken 03/25/16] Citalopram (anti-depressant) [Celexa] 20 mg PO DAILY@1200 11/27/13 [History Confirmed 03/28/16 Last Taken 03/28/16 09:20] Furosemide [Lasix] 20 mg PO BID 11/27/13 [History Confirmed 03/28/16 Last Taken 03/28/16 09:20] Potassium Chloride [Micro-K] 8 meq PO QAM 11/27/13 [History Confirmed 03/25/16 Last Taken 03/25/16] Albuterol Sulfate [Proair Hfa] 1 - 2 puff INH Q4-6H PRN 05/06/14 [History Confirmed 03/28/16 Last Taken 03/28/16 07:40] Estradiol [Estrace] 0.5 mg PO DAILY 05/06/14 [History Confirmed 03/28/16 Last Taken 03/28/16 09:20] Nebulizer [Erapid Nebulizer] 1 item NEB DAILY 05/06/14 [History Confirmed Last Taken 03/25/16] Wister-3S/Dha/Epa/Fish Oil [Fish Oil 1,200 mg Softgel] 1 cap PO BID 05/06/14 [ History Confirmed 03/25/16 Last Taken 03/25/16] Cholecalciferol [Vitamin D3 (cholecalciferol)] 1,000 units PO DAILY 03/25/16 [ History Confirmed 03/25/16 Last Taken 03/25/16] Gammagard Unk 0 mg IV .SEE COMMENTS 03/25/16 [History Confirmed 03/25/16 Last Taken 03/18/16] Prednisone [Deltasone, Orasone] 30 mg PO DAILY 03/25/16 [History Confirmed 03/28 Last Taken 03/28/16 08:00 80 MG IV SOLUMEDROL] Umeclidinium Brm/Vilanterol Tr [Anoro Ellipta 62.5-25 Mcg INH] 1 puff INH DAILY 03/25/16 [History Confirmed 03/25/16 Last Taken 03/25/16] Azithromycin [Zithromax Tri-Yobani] 500 mg PO DAILY #3 tablet 03/28/16 [Rx Last Taken Unknown] Cephalexin Monohydrate [Keflex] 500 mg PO Q8H #14 cap 03/28/16 [Rx Last Taken Unknown] 03/28/16 02:55 03/28/16 02:55 Laboratory Results - last 24 hr 03/28/16 03/28/16 03/28/16 02:55 02:55 03:55 WBC 19.6 H RBC 3.53 L Hgb 10.0 L Hct 32.1 L MCV 91 MCH 28.4 MCHC 31.2 L RDW 14.4 Plt Count 186 MPV 10.4 Puncture Site Left radial pH 7.430 pCO2 79.0 H* pO2 64.0 L HCO3 52.4 H Total CO2 54.8 H Base Excess 23.0 H FiO2 % 30 Mode BiPAP 22/11 Specimen Drawn By Kaytr Sodium 140 Potassium 3.8 Chloride 90 L Carbon Dioxide 44 H Anion Gap 10 BUN 31 H Creatinine 0.60 Glucose 152 H Calculated Osmolality 279 Calcium 8.3 L O2 Device: Nasal Cannula Oxygen Flow Rate: 3 Additional Instructions: TAKE A PROBIOTIC OR EAT YOGURT 2 TIMES A DAY. Diet at Discharge: Cardiac, Heart Healthy Activity: As Tolerated - DC Summary Notes HPI/Notes: This is a 65-year-old female with history of COPD chronically on 3 L nasal cannula oxygen was being admitted today due to 2 days of worsening shortness of breath, and increasing cough. Most of the history is taken from the patient's daughter who was at the bedside, and is her daily caregiver, since the patient is currently on BiPAP and also very hard of hearing. The patient and her daughter together tell me that she has been in her usual state of health over the last several months, though she has had some intermittent rectal bleeding. Other than that, she has been in her usual state of health until 2 days ago, when she started to feel like she was coming down with some sort of a cold and having some worsening shortness of breath. Shortness of breath was exacerbated by exertion. She denies any associated fevers or chills at home, chest pain, abdominal pain nausea or vomiting. No therapies tried prior to arrival at home. Id the emergency department, ABG demonstrated a pCO2 of 120. The patient was placed on BiPAP and is currently breathing comfortably. Hospital Course Note:: Discharge summary on patient named MARIA GUADALUPE ORTIZ admitted to [facility] on 03/25/16 by Delbert Bob MD. Date of discharge is 2016. She is admitted with severe COPD exacerbation with pCO2 of 120. She was noted to have severe emphysema on chest x-ray and started on Rocephin Zithromax and IV Solu-Medrol. Probiotics were recommended at time of discharge and she was given prescription for the discharge antibiotics orally and p.o. prednisone. She is advised follow-up with Dr. Kim within the next few days. She indicates that she gets around in a wheelchair and is unable to adequately ambulate. CC: Dr. Julio Singleton Total Time: 39 MIN Code: 79920 (>30min.) - Physical Exam Vital Signs: Last Vital Signs Temp 97.6 F 03/28/16 08:22 Pulse 77 03/28/16 08:22 Resp 18 03/28/16 08:22 BP 150/72 03/28/16 08:22 Pulse Ox 92 03/28/16 08:22 Oxygen Pulse Oxygen Saturation 92 O2 Device Nasal Cannula Oxygen Flow Rate 3 Fraction of Inspired Oxygen ( 30 FIO2) Constitutional: No apparent distress, Alert (Awake, Fully oriented. Normal and appropriate affect.) Oriented to: Time, Person, Place - HEENT Head: Normal (normocephalic,atraumatic, trachea midline) Eye: Normal (EOMI, Sclera white) Oropharynx: Normal (moist) ENT EAC: Normal (No oropharyngeal lesions or erythema. Mucous membranes are dry. ) TMJ: Normal Nose: No Symptoms Reported (without discharge or bleeding) - Respiratory/Cardiovascular Respiratory: Diminished. negative: Rales, Rhonchi, Wheezes Cardiovascular: Normal (RRR , Normal S1, S2. No murmurs, rubs, or gallops. PMI non-displaced. Carotids: no carotid bruits. No bradycardia or tachycardia. DP pulses 2+ bilaterally.) - GI Auscultation: Normal (normal active sounds) Palpation: Normal (soft, non distended and nontender) Tenderness: Non tender (No rebound or guarding) Barnes's Sign: Negative - Exam Deferred: Yes - Musculoskeletal Back: Ecchymosis Extremities: Normal (normal tone, no cyanosis or edema) - Integumentary Skin: Normal (no rashes or lesions) Lymphatics: Normal - Neurologic Memory Impaired: Normal Motor Function: Normal (Motor 5/5 throughout.Normal tone, Pulses 2+ No cyanosis or edema, FROM) Cranial Nerve: Normal (CN II-XII intact sensation, strength 5/5) Cerebellar: Normal (Babinski: toes downgoing bilaterally. Intact Finger to nose. Sensory grossly intact to light touch. Intact rapid alternating movements bilaterally. No pronator drift.) Mood Description: Normal Thought: Coherent Perception: Normal (Normal and appropriate affect.)
[2016-03-28 11:48] VITALS: BP 145/64; TEMP 97.8
[2016-03-28] MEDS: CEFTRIAXONE 1 GM in D5W 100 ML IV SCH (11:55)
[2016-03-28] MEDS ORDERED: AZITHROMYCIN 500 MG in D5W 250 ML IV SCH (14:00)
[2016-03-28] MEDS ORDERED: HEPARIN 500 UNITS/5 ML (100 UNITS/ML) SYR FLUSH ONE (14:00)
[2016-03-28 14:41] VITALS: PULSE 85
[2016-03-28] MEDS ORDERED: PROBIOTIC BLEND TAB PO SCH (18:00)
== END 2016-03-28 14:34 | disposition home health service (06) | DRG 189 ==
LOC: ED 10:55 → PCU 13:02
PROVIDERS: ADMIT Internal Medicine; ATTEND Internal Medicine
PROC: 039B3ZZ Drainage of Right Radial Artery, Percutaneous Approach (ICD-10-PCS; principal; 2016-03-25)
PROC: 5A09357 Assistance with Respiratory Ventilation, Less than 24 Consecutive Hours, Continuous Positive Airway Pressure (ICD-10-PCS; 2016-03-25)
DX: J96.02 Acute respiratory failure with hypercapnia (principal); D80.1 Nonfamilial hypogammaglobulinemia; I50.9 Heart failure, unspecified; J44.0 Chronic obstructive pulmonary disease with (acute) lower respiratory infection; J44.1 Chronic obstructive pulmonary disease with (acute) exacerbation; K62.5 Hemorrhage of anus and rectum; I10 Essential (primary) hypertension; Z99.81 Dependence on supplemental oxygen; I25.2 Old myocardial infarction; M19.90 Unspecified osteoarthritis, unspecified site; K21.9 Gastro-esophageal reflux disease without esophagitis; E03.9 Hypothyroidism, unspecified; F41.8 Other specified anxiety disorders; Z85.9 Personal history of malignant neoplasm, unspecified; Z79.899 Other long term (current) drug therapy; Z79.82 Long term (current) use of aspirin; Z87.891 Personal history of nicotine dependence; J20.9 Acute bronchitis, unspecified; Z66 Do not resuscitate
CPT/HCPCS: 36415; 36600; 71010; 80048; 80053; 81001; 82550; 82803; 83605; 83880; 84484; 85007; 85027; 85610; 85730; 87040; 87077; 93005; 94640; 94660; 96365; 96366; 96372; 96375; 98960; 99284; J0456; J0696; J1642; J1650; J2060; J2930; J3490; J7060; J7070; J7620; S0164